=== PATIENT | female | born 1960 | race Caucasian/White ===

== ENCOUNTER → 2022-01-29 | Outpatient (CLI) | payer MEDICARE ==
[~2022-01-29] MED LIST: ASP81TEC; GADOTERATE 0.5 MMOL/ML (CLARISCAN) 20 ML VIAL IV ONE; LRT10T; MULT1TAB63
--- NOTE | 2022-01-29 15:14 | Diagnostic Imaging Report ---
PROCEDURE: MR imaging of the brain without contrast. TECHNIQUE: Multiplanar, multisequence MR imaging of the brain was performed without contrast. INDICATION: Abnormal brain MRI The outside abnormal brain MRI is not available for direct comparison. Ventricles and sulci are within normal limits for size. Delgado and white matter signal intensities are unremarkable. There is no abnormal mass effect or shift of midline structures. There is hyperostosis frontalis interna. No restricted diffusion is seen to indicate an infarct. The visualized paranasal sinuses and mastoid air cells are clear. IMPRESSION: Unremarkable MRI of the brain. Dictated by: Dictated on workstation # [id number]
== END ==
LOC: RAD 14:00
PROVIDERS: ATTEND Internal Medicine
DX: G93.9 Disorder of brain, unspecified (principal); R94.02 Abnormal brain scan
CPT/HCPCS: 70551

== ENCOUNTER 2022-05-07 22:55 | Emergency (ER) | payer MEDICARE ==
[~2022-05-07] VITALS: Ht 165.1 cm; Wt 104.3 kg
[~2022-05-07 22:55] MED LIST changes: -GADOTERATE 0.5 MMOL/ML (CLARISCAN) 20 ML VIAL IV ONE
[2022-05-07 23:36] VITALS: BP 144/73
[2022-05-07] MEDS ORDERED: RX-MUPIROCIN (BACTROBAN) 2% OINT 22 GM TUBE TOP STA (23:47)
[2022-05-07] MEDS ORDERED: RX-NAPROXEN (NAPROSYN) 250 MG TAB PPK#4 PO STA (23:53)
[2022-05-08] MEDS ORDERED: TETANUS,DIPTH,PERTUSS P/F (BOOSTRIX) 0.5 ML VIAL IM ONE
[2022-05-08] MEDS ORDERED: AUGMENTIN 875 MG TAB (AMOXICILLIN/CLAVULANATE) PO SCH
--- NOTE | 2022-05-08 00:01 | ED Integumentary General ---
General Chief Complaint: Skin/Wound Problems Stated Complaint: L LEG PUNCTURE WOUND, ROOSTER ATTACK Nursing Triage Note: pt ambulatory to room. pt reports at 10 this am she was attacked by her rooster. pt has puncture wound to inner and outer upper left thigh. pt reports putting neosporin on wound and taken alieve this afternoon. Source: patient History of Present Illness Date Seen by Provider: May 07, 2022 Time Seen by Provider: 23:42 Initial Comments PT ARRIVES VIA POV FROM HOME STATES AROUND 10 AM TODAY, SHE WAS OUTSIDE, OPENING A PEN WITH CHICKS IN IT, AND HER ROOSTER CAME UP BEHIND HER AND ATTACKED HER--SPURRED HER LEFT THIGH IN MULTIPLE PLACES WAS WEARING PANTS AT THE TIME PT HAS HAD INCREASED PAIN AND REDNESS TO THE AREAS, ESPECIALLY TO ONE AREA ON HER MEDIAL LEFT THIGH HAS SCANT AMOUNT OF SERO-SANGUINOUS DRAINAGE FROM THE MAIN MEDIAL THIGH WOUND TOOK ALEVE AT 1400 WITHOUT RELIEF. LAST TETANUS IS UNKNOWN PCP: DR. GUTIERREZ Allergies and Home Medications Allergies Coded Allergies: Sulfa (Sulfonamides) (Verified Allergy, Unknown, 03/30/07) Patient Home Medication List Aspirin (Aspirin Ec) 81 Mg Tablet, (Reported) Entered as Reported by: TO BELL on 03/30/07 0346 Loratadine (Claritin) 10 Mg Box, (Reported) Entered as Reported by: TO BELL on 03/30/07 034 Multivitamins (Vitamins (Multi-Vit)) 1 Ea Tablet, (Reported) Entered as Reported by: TO BELL on 03/30/07 0347 Physical Exam Vital Signs Vital Signs - First Documented 05/07/22 23:36 Temp 36.2 Pulse 67 Resp 20 B/P (MAP) 144/73 (96) Pulse Ox 99 Capillary Refill : Progress/Results/Core Measures Results/Orders My Orders Orders - PAUL DOMINGUEZ DO Rx-Mupirocin 2% Oint (Rx-Bactroban) (05/07/22 23:47) Dipht,Pertuss(Acell),Tet Adult (Boostrix (05/08/22 00:00) Wound Dressing-Ed (05/07/22 23:47) Amoxicillin/Clavulanate Tablet (Augmenti (05/08/22 00:00) Rx-Tramadol Hcl (Rx-Ultram) (05/07/22 23:53) Rx-Naproxen (Rx-Naprosyn) (05/07/22 23:53) Femur, Left, 2 Views (05/08/22 00:01) Vital Signs/I&O 05/07/22 23:36 Temp 36.2 Pulse 67 Resp 20 B/P (MAP) 144/73 (96) Pulse Ox 99 Blood Pressure Mean: 96 Departure Impression Primary Impression: PUNCTURE WOUNDS OF LEFT THIGH DUE TO ROOSTER SPURS Additional Impressions: Ekwvcawjgh-rppqnglfb-xwmgmvs (DPT) vaccination administered at current visit PUNCTURE WOUND WITH EARLY CELLULITIS Disposition: HOME, SELF-CARE Condition: Stable Departure-Patient Inst. Decision time for Depature: 00:58 Referrals: YOLI GUTIERREZ MD (PCP/Family) Primary Care Physician Patient Instructions: Cellulitis (Skin Infection), Adult (DC), Diphtheria and Tetanus Toxoids, and Acellular Pertussis Vaccine, Taking Care of Cuts, Scrapes, and Puncture Wounds, Wound Care (DC) Add. Discharge Instructions: ALTERNATE ICE AND HEAT TO SORE AREAS AT 20 MINUTE INTERVALS CLEAN 2-3 TIMES A DAY WITH ANTIBACTERIAL SOAP AND WATER, APPLY ANTIBIOTIC OINTMENT AND FRESH DRESSING TWICE A DAY FOLLOW UP WITH DR. GUTIERREZ ON TUESDAY FOR FURTHER CARE, RETURN TO ER IF WORSE All discharge instructions reviewed with patient and/or family. Voiced understanding. Scripts Tramadol HCl (Ultram) 50 Mg Tablet 50 MG PO Q4H for Pain, #20 TAB Prov: PAUL DOMINGUEZ DO 05/08/22 Naproxen (Naproxen) 500 Mg Tablet. 500 MG PO BID, #20 TAB Prov: PAUL DOMINGUEZ DO 05/08/22 Amoxicillin/Potassium Clav (Amox Tr-K Clv 875-125 mg Tab) 875 Mg-125 Mg Tablet 1 EACH PO BID for 15 Days, #30 TAB Prov: PAUL DOMINGUEZ DO 05/08/22 PAUL DOMINGUEZ DO May 08, 2022 00:01
[2022-05-08] MEDS ORDERED: TRAM-42 PO (01:02)
[2022-05-08] MEDS ORDERED: AMOX1TAB12 PO (01:02)
[2022-05-08] MEDS ORDERED: NAPR500T8 PO (01:02)
--- NOTE | 2022-05-08 07:29 | Diagnostic Imaging Report ---
EXAMINATION: Left femur 2 or more views HISTORY: Leg pain COMPARISON: None available. FINDINGS: No radiopaque foreign body is seen. Alignment is normal. No fracture is seen. Joint spaces are normal. IMPRESSION: 1. No fracture. No radiopaque foreign body. Dictated by: Dictated on workstation # [id number]
== END 2022-05-08 01:18 | disposition home or self-care (01) ==
LOC: EDUNIT# 22:55 → ER 22:57
DX: S71.132A Puncture wound without foreign body, left thigh, initial encounter (principal); Z23 Encounter for immunization; X58.XXXA Exposure to other specified factors, initial encounter
CPT/HCPCS: 73552; 90715

== ENCOUNTER 2022-06-12 22:52 | Emergency (ER) | payer MEDICARE ==
[~2022-06-12] VITALS: Ht 165.1 cm; Wt 104.3 kg
[~2022-06-12 22:52] MED LIST changes: +AMOX1TAB12 PO; +NAPR500T8 PO; +TRAM-42 PO
[2022-06-12] MEDS ORDERED: ONDANSETRON 4 MG/2 ML (SDV) Z0FRAN IVP ONE (23:15)
[2022-06-12 23:22] LABS: BASOPHILS # (AUTO) 0.1 10^3/uL (0.0-0.1); BASOPHILS % (AUTO) 1 % (0-10); EOSINOPHILS # (AUTO) 0.2 10^3/uL (0.0-0.3); EOSINOPHILS % (AUTO) 1 % (0-10); HEMATOCRIT 39 % (35-52); HEMOGLOBIN 13.6 g/dL (11.5-16.0); LYMPHOCYTES # (AUTO) 2.7 10^3/uL (1.0-4.0); LYMPHOCYTES % (AUTO) 20 % (12-44); MEAN CORPUSCULAR HEMOGLOBIN 30 pg (25-34); MEAN CORPUSCULAR HGB CONC 35 g/dL (32-36); MEAN CORPUSCULAR VOLUME 86 fL (80-99); MEAN PLATELET VOLUME 9.1 fL (9.0-12.2); MONOCYTES # (AUTO) 1.3 10^3/uL (0.0-1.0); MONOCYTES % (AUTO) 10 % (0-12); NEUTROPHILS # (AUTO) 8.7 10^3/uL (1.8-7.8); NEUTROPHILS % (AUTO) 66 % (42-75); PLATELET COUNT 319 10^3/uL (130-400); WHITE BLOOD COUNT 13.2 10^3/uL (4.3-11.0)
[2022-06-12 23:34] LABS: POTASSIUM 3.8 MMOL/L (3.6-5.0)
[2022-06-12 23:35] LABS: CALCIUM 9.2 MG/DL (8.5-10.1)
[2022-06-12 23:36] LABS: TOTAL PROTEIN 7.2 GM/DL (6.4-8.2)
[2022-06-12 23:38] LABS: BILIRUBIN,TOTAL 0.4 MG/DL (0.1-1.0)
[2022-06-12 23:40] LABS: CREATININE SERUM 0.95 MG/DL (0.60-1.30)
[2022-06-12 23:43] LABS: MAGNESIUM 1.9 MG/DL (1.6-2.4)
[2022-06-12 23:45] LABS: ERYTHROCYTE SEDIMENTATION RATE 18 MM/HR (0-30)
[2022-06-13] MEDS ORDERED: LACTATED RINGERS 1,000 ML IV ONE
--- NOTE | 2022-06-13 00:17 | ED GI ---
General Chief Complaint: Abdominal/GI Problems Stated Complaint: ABD PAIN,DIARRHEA,FEVER Source of Information: Patient History of Present Illness Date Seen by Provider: Jun 12, 2022 Time Seen by Provider: 23:12 Initial Comments PT ARRIVES VIA POV FROM HOME STATES SHE HAS BEEN SICK X 1 WEEK C/O NAUSEA C/O DIARRHEA C/O ABDOMINAL PAIN AND DISTENTION HAS HAD FEVER UP TO 100 Allergies and Home Medications Allergies Coded Allergies: Sulfa (Sulfonamide Antibiotics) (Verified Allergy, Unknown, 03/30/07) Patient Home Medication List Amoxicillin/Potassium Clav (Amox Tr-K Clv 875-125 mg Tab) 875 Mg-125 Mg Tablet, 1 EACH PO BID Prescribed by: PAUL DOMINGUEZ on 05/08/22101 Aspirin (Aspirin Ec) 81 Mg Tablet, (Reported) Entered as Reported by: TO BELL on 03/30/07345 Ciprofloxacin HCl (Ciprofloxacin HCl) 500 Mg Tablet, 500 MG PO BID Prescribed by: PAUL DOMINGUEZ on 06/13/22300 Dicyclomine HCl (Dicyclomine HCl) 20 Mg Tablet, 20 MG PO Q6H Prescribed by: PAUL DOMINGUEZ on 06/13/22300 L. Acidophilus/Pectin, Lobeco (Acidophilus Capsule) 7.5 Mg (30 Million Cell)-100 Mg Capsule, 2 EACH PO QID Prescribed by: PAUL DOMINGUEZ on 06/13/22300 Loratadine (Claritin) 10 Mg Box, (Reported) Entered as Reported by: TO BELL on 03/30/07346 Metronidazole (Metronidazole) 500 Mg Tablet, 500 MG PO QID Prescribed by: PAUL DOMINGUEZ on 06/13/22300 Multivitamins (Vitamins (Multi-Vit)) 1 Ea Tablet, (Reported) Entered as Reported by: TO BELL on 03/30/07346 Naproxen (Naproxen) 500 Mg Tablet.dr, 500 MG PO BID Prescribed by: PAUL DOMINGUEZ on 05/08/22101 Ondansetron (Ondansetron Odt) 8 Mg Tab.rapdis, 8 MG PO Q6H Prescribed by: PAUL DOMINGUEZ on 06/13/22300 Tramadol HCl (Ultram) 50 Mg Tablet, 50 MG PO Q4H Prescribed by: PAUL DOMINGUEZ on 8/13/22 0102 Past Yeoankd-Rzghuc-Apitfl Hx Past Medical History Surgeries: No Respiratory: Yes Asthma Cardiac: Yes (SVT) Irregular Heartbeat Neurological: No Reproductive Disorders: No Genitourinary: No Gastrointestinal: No Musculoskeletal: No Endocrine: Yes Hypothyroidsim HEENT: No Cancer: No Psychosocial: No Integumentary: No Blood Disorders: No Physical Exam Vital Signs Vital Signs - First Documented 06/12/22 23:01 Temp 36.0 Pulse 80 Resp 18 B/P (MAP) 135/76 (95) Pulse Ox 97 O2 Delivery Room Air Capillary Refill : Height/Weight/BMI Height: '" Weight: lbs. oz. 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, no motor/sensory deficits, alert, normal mood/affect, oriented x 3 Skin: normal color, warm/dry Focused Exam Lactate Level 06/13/22 00:00: Lactic Acid Level 1.18 Lactic Acid Level Laboratory Tests Test 06/13/22 00:00 Lactic Acid Level 1.18 MMOL/L (0.50-2.00) Progress/Results/Core Measures Results/Orders Lab Results Laboratory Tests Test 06/12/22 23:15 06/12/22 23:36 06/13/22 00:00 06/13/22 00:13 Range/Units White Blood Count 13.2 H 4.3-11.0 10^3/uL Red Blood Count 4.56 3.80-5.11 10^6/uL Hemoglobin 13.6 11.5-16.0 g/dL Hematocrit 39 35-52 % Mean Corpuscular Volume 86 80-99 fL Mean Corpuscular Hemoglobin 30 25-34 pg Mean Corpuscular Hemoglobin Concent 35 32-36 g/dL Red Cell Distribution Width 12.5 10.0-14.5 % Platelet Count 319 130-400 10^3/uL Mean Platelet Volume 9.1 9.0-12.2 fL Immature Granulocyte % (Auto) 2 % Neutrophils (%) (Auto) 66 42-75 % Lymphocytes (%) (Auto) 20 12-44 % Monocytes (%) (Auto) 10 0-12 % Eosinophils (%) (Auto) 1 0-10 % Basophils (%) (Auto) 1 0-10 % Neutrophils # (Auto) 8.7 H 1.8-7.8 10^3/uL Lymphocytes # (Auto) 2.7 1.0-4.0 10^3/uL Monocytes # (Auto) 1.3 H 0.0-1.0 10^3/uL Eosinophils # (Auto) 0.2 0.0-0.3 10^3/uL Basophils # (Auto) 0.1 0.0-0.1 10^3/uL Immature Granulocyte # (Auto) 0.3 H 0.0-0.1 10^3/uL Erythrocyte Sedimentation Rate 18 0-30 MM/HR Sodium Level 138 135-145 MMOL/L Potassium Level 3.8 3.6-5.0 MMOL/L Chloride Level 105 98-107 MMOL/L Carbon Dioxide Level 20 L 21-32 MMOL/L Anion Gap 13 5-14 MMOL/L Blood Urea Nitrogen 8 7-18 MG/DL Creatinine 0.95 0.60-1.30 MG/DL Estimat Glomerular Filtration Rate 68 BUN/Creatinine Ratio 8 Glucose Level 100 70-105 MG/DL Calcium Level 9.2 8.5-10.1 MG/DL Corrected Calcium 9.2 8.5-10.1 MG/DL Magnesium Level 1.9 1.6-2.4 MG/DL Total Bilirubin 0.4 0.1-1.0 MG/DL Aspartate Amino Transf (AST/SGOT) 21 5-34 U/L Alanine Aminotransferase (ALT/SGPT) 26 0-55 U/L Alkaline Phosphatase 77 40-136 U/L C-Reactive Protein High Sensitivity 1.21 H 0.00-0.50 MG/DL Total Protein 7.2 6.4-8.2 GM/DL Albumin 4.0 3.2-4.5 GM/DL Amylase Level 50 25-125 U/L Lipase 12 8-78 U/L Influenza Type A (RT-PCR) Not Detected Not Detecte Influenza Type B (RT-PCR) Not Detected Not Detecte SARS-CoV-2 RNA (RT-PCR) Not Detected Not Detecte Lactic Acid Level 1.18 0.50-2.00 MMOL/L Urine Color YELLOW Urine Clarity CLEAR Urine pH 6.0 5-9 Urine Specific [place] 1.015 L 1.016-1.022 Urine Protein NEGATIVE NEGATIVE Urine Glucose (UA) NEGATIVE NEGATIVE Urine Ketones NEGATIVE NEGATIVE Urine Nitrite NEGATIVE NEGATIVE Urine Bilirubin NEGATIVE NEGATIVE Urine Urobilinogen 0.2 < = 1.0 MG/DL Urine Leukocyte Esterase NEGATIVE NEGATIVE Urine RBC (Auto) NEGATIVE NEGATIVE Urine RBC NONE /HPF Urine WBC 0-2 /HPF Urine Squamous Epithelial Cells 2-5 /HPF Urine Crystals NONE /LPF Urine Bacteria TRACE /HPF Urine Casts NONE /LPF Urine Mucus SMALL H /LPF Urine Culture Indicated CULTURE PENDING Test 06/13/22 02:57 Range/Units Stool Occult Blood Immunoassay POSITIVE H NEGATIVE My Orders Orders - PAUL DOMINGUEZ DO Ed Iv/Invasive Line Start (06/12/22 23:13) Monitor-Rhythm Ecg Trace Only (06/12/22 23:13) Amylase (06/12/22 23:13) Cbc With Automated Diff (06/12/22 23:13) Comprehensive Metabolic Panel (06/12/22 23:13) Hs C Reactive Protein (06/12/22 23:13) Lactic Acid Analyzer (06/12/22 23:13) Lipase (06/12/22 23:13) Magnesium (06/12/22 23:13) Ua Culture If Indicated (06/12/22 23:13) Blood Culture (06/12/22 23:13) Erythrocyte Sedimentation Rate (06/12/22 23:13) Ondansetron Injection (Zofran Injectio (06/12/22 23:15) Covid 19 Inhouse Test (06/12/22 23:13) Influenza A And B By Pcr (06/12/22 23:13) Isolation Central Supply Req (06/12/22 23:13) Urine Culture (06/12/22 23:13) Ed Iv/Invasive Line Start (06/12/22 23:13) Vital Signs Adult Sepsis Patie Q15M (06/12/22 23:13) O2 (06/12/22 23:13) Remove Rings In Anticipation O (06/12/22 23:13) Ed Iv/Invasive Line Start (06/12/22 23:57) Lactated Ringers (Lr 1000 Ml Iv Solution (06/13/22 00:00) Chest 1 View, Ap/Pa Only (06/13/22 00:01) Straight Cath For Spec.-Adult (06/13/22 00:08) Ct Abdomen/Pelvis W (06/13/22 00:08) Iohexol Injection (Omnipaque 350 Mg/Ml 1 (06/13/22 02:15) Received Contrast (Hold Metformin- Contr (06/13/22 02:15) Ns (Ivpb) (Sodium Chloride 0.9% Ivpb Bag (06/13/22 02:15) Ciprofloxacin Tablet (Cipro Tablet) (06/13/22 03:00) Metronidazole Tablet (Flagyl Tablet) (06/13/22 03:00) Stool Culture (06/13/22 03:01) Fecal Wbc (06/13/22 03:01) Rotavirus Antigen (06/13/22 03:01) Parasite Scrn Stool Giard Cryp (06/13/22 03:01) Parasite Complete Exam Stool (06/13/22 03:01) C Difficile Ag + Toxin A/B. (06/13/22 03:01) Isolation Central Supply Req (06/13/22 03:01) Occult Blood Stool (06/13/22 03:01) Medications Given in ED Current Medications Medications Dose Ordered Sig/Meghan Route Start Time Stop Time Status Last Admin Dose Admin Iohexol 100 ml ONCE ONCE IV 06/13/22 02:15 06/13/22 02:17 DC 06/13/22 02:12 80 ML Lactated Ringer's 1,000 ml @ 0 mls/hr Q0M ONCE IV 06/13/22 00:00 06/13/22 00:01 DC 06/13/22 00:11 999 MLS/HR Metronidazole 500 mg ONCE ONCE PO 06/13/22 03:00 06/13/22 03:01 DC 06/13/22 02:58 500 MG Ondansetron HCl 4 mg ONCE ONCE IVP 06/12/22 23:15 06/12/22 23:16 DC 06/12/22 23:33 4 MG Sodium Chloride 100 ml ONCE ONCE IV 06/13/22 02:15 06/13/22 02:17 DC 06/13/22 02:13 80 ML Vital Signs/I&O 06/12/22 23:01 Temp 36.0 Pulse 80 Resp 18 B/P (MAP) 135/76 (95) Pulse Ox 97 O2 Delivery Room Air Departure Impression Primary Impression: Colitis Disposition: 01 HOME, SELF-CARE Condition: Stable Departure-Patient Inst. Decision time for Depature: 02:45 Referrals: YOLI GUTIERREZ MD (PCP/Family) Primary Care Physician Patient Instructions: Colitis (DC) Add. Discharge Instructions: CLEAR LIQUIDS--WATER, BROTH, JELLO, GATORADE BRATS DIET--BANANAS, RICE, APPLESAUCE, TOAST, SALTINES FOLLOW UP WITH YOUR DR IN 2-3 DAY FOR FURTHER CARE, RETURN TO ER IF WORSE All discharge instructions reviewed with patient and/or family. Voiced understanding. Scripts Ondansetron (Ondansetron Odt) 8 Mg Tab.rapdis 8 MG PO Q6H, #10 TAB Prov: PAUL DOMINGUEZ DO 06/13/22 Dicyclomine HCl (Dicyclomine HCl) 20 Mg Tablet 20 MG PO Q6H for Abdominal Pain, #30 TAB Prov: PAUL DOMINGUEZ DO 06/13/22 L. Acidophilus/Pectin, Lobeco (Acidophilus Capsule) 7.5 Mg (30 Million Cell)-100 Mg Capsule 2 EACH PO QID, #40 CAP Prov: PAUL DOMINGUEZ DO 06/13/22 Metronidazole (Metronidazole) 500 Mg Tablet 500 MG PO QID, #28 TAB 0 Refills Prov: PAUL DOMINGUEZ DO 06/13/22 Ciprofloxacin HCl (Ciprofloxacin HCl) 500 Mg Tablet 500 MG PO BID, #14 TAB Prov: PAUL DOMINGUEZ DO 06/13/22 PAUL DOMINGUEZ DO Jun 13, 2022 00:17
[2022-06-13 00:26] LABS: BILIRUBIN,URINE NEGATIVE (NEGATIVE); CLARITY,URINE CLEAR; COLOR,URINE YELLOW; GLUCOSE, URINE (UA) NEGATIVE (NEGATIVE); KETONES,URINE NEGATIVE (NEGATIVE); LEUKOCYTE ESTERASE ,URINE NEGATIVE (NEGATIVE); NITRITE,URINE NEGATIVE (NEGATIVE); PROTEIN,URINE NEGATIVE (NEGATIVE)
[2022-06-13 00:33] LABS: BACTERIA,URINE TRACE /HPF; WBC,URINE 0-2 /HPF
[2022-06-13] MEDS ORDERED: NS 100 ML (IVPB) BAG IV ONE (02:15)
[2022-06-13] MEDS ORDERED: HOLD METFORMIN - RECEIVED CONTRAST 20 ML VIAL IV SCH (02:15)
[2022-06-13] MEDS ORDERED: IOHEXOL 350 MG/ML 100 ML (OMNIPAQUE 350) VIAL IV ONE (02:15)
[2022-06-13] MEDS ORDERED: CIPROFLOXACIN 500 MG (CIPRO) TABLET PO SCH (03:00)
[2022-06-13] MEDS ORDERED: metroNIDAZOLE 500 MG (FLAGYL) TAB PO ONE (03:00)
[2022-06-13] MEDS ORDERED: L. A1CAP11 PO (03:01)
[2022-06-13] MEDS ORDERED: DICY20TA PO (03:01)
[2022-06-13] MEDS ORDERED: CIPR500T5 PO (03:01)
[2022-06-13] MEDS ORDERED: ONDA8TAB13 PO (03:01)
[2022-06-13] MEDS ORDERED: METR-145 PO (03:01)
[2022-06-13 03:56] VITALS: BP 135/76
--- NOTE | 2022-06-13 06:52 | Diagnostic Imaging Report ---
PROCEDURE: CT abdomen and pelvis with contrast. TECHNIQUE: Multiple contiguous axial images were obtained through the abdomen and pelvis after administration of intravenous contrast. Auto Exposure Controls were utilized during the CT exam to meet ALARA standards for radiation dose reduction. All CT scans use one or more of the following dose optimizing techniques: automated exposure control, MA and/or KvP adjustment based on patient size and exam type or iterative reconstruction. INDICATION: Abdominal pain, fever COMPARISON: None FINDINGS: Lung bases are clear. The heart is normal in size. The liver demonstrates a tiny hypodensity at the superior right lobe which is too small to characterize. There is focal fatty infiltration along the falciform ligament. Cholecystectomy clips are noted. The spleen appears normal. The pancreas is normal. The adrenal glands appear normal. The kidneys demonstrate no enhancing lesions. There is a simple appearing cyst in the posterior left kidney which measures 2.6 cm. The bowel loops are nondistended without obstruction. The appendix appears normal. There is diffuse bowel wall thickening and enhancement throughout the colon. No free fluid or free air seen. No lymphadenopathy is seen. The aorta is normal in caliber. No acute osseous abnormalities seen. IMPRESSION: 1. Acute colitis throughout the colon, likely infectious or inflammatory. No free fluid or free air. No significant changes from the preliminary report. Dictated by: Dictated on workstation # [id number]
--- NOTE | 2022-06-13 07:32 | Diagnostic Imaging Report ---
EXAMINATION: Chest radiograph, portable AP view. DATE: 06/13/2022 1:57 AM. INDICATION: 61-year-old female, chest pain. Fever. COMPARISON: None. FINDINGS: The heart size and mediastinal contours are unremarkable. There is no identified pneumothorax. There is no large pleural effusion. There is no identified focal airspace consolidation. IMPRESSION: No identified acute cardiopulmonary abnormality. Dictated by: Dictated on workstation # [id number]
== END 2022-06-13 03:56 | disposition home or self-care (01) ==
LOC: EDUNIT# 22:52 → ER 22:54
DX: K52.9 Noninfective gastroenteritis and colitis, unspecified (principal); Z20.822 Contact with and (suspected) exposure to COVID-19
CPT/HCPCS: 36415; 71045; 74177; 80053; 81000; 82150; 82274; 83605; 83690; 83735; 85025; 85652; 86141; 87015; 87040; 87045; 87046; 87088; 87177; 87324; 87328; 87425; 87449; 87636; 87899; 89055; 93041

== ENCOUNTER → 2022-06-30 | Outpatient (CLI) | payer MEDICARE ==
[~2022-06-30] MED LIST changes: +CATHETER FLUSH 10 ML SYR IV PRN; +CIPR500T5 PO; +DICY20TA PO; +HOLD METFORMIN - RECEIVED CONTRAST 20 ML VIAL IV SCH; +IOHEXOL 350 MG/ML 100 ML (OMNIPAQUE 350) VIAL IV ONE; +L. A1CAP11 PO; +METR-145 PO; +NS 100 ML (IVPB) BAG IV ONE; +ONDA8TAB13 PO
[2022-06-30 16:01] LABS: HEMATOCRIT 41 % (35-52); HEMOGLOBIN 13.3 g/dL (11.5-16.0); MEAN CORPUSCULAR HEMOGLOBIN 30 pg (25-34); MEAN CORPUSCULAR HGB CONC 33 g/dL (32-36); MEAN CORPUSCULAR VOLUME 91 fL (80-99); MEAN PLATELET VOLUME 9.3 fL (9.0-12.2); PLATELET COUNT 260 10^3/uL (130-400); WHITE BLOOD COUNT 7.7 10^3/uL (4.3-11.0)
[2022-06-30 16:17] LABS: ALBUMIN 4.3 GM/DL (3.2-4.5); POTASSIUM 4.2 MMOL/L (3.6-5.0)
[2022-06-30 16:19] LABS: CALCIUM 9.5 MG/DL (8.5-10.1)
[2022-06-30 16:20] LABS: TOTAL PROTEIN 7.7 GM/DL (6.4-8.2)
[2022-06-30 16:21] LABS: BILIRUBIN,TOTAL 0.4 MG/DL (0.1-1.0)
[2022-06-30 16:23] LABS: CREATININE SERUM 0.86 MG/DL (0.60-1.30)
--- NOTE | 2022-06-30 16:54 | Diagnostic Imaging Report ---
EXAMINATION: CT abdomen and pelvis with intravenous contrast. TECHNIQUE: Multiple contiguous axial images were obtained through the abdomen and pelvis after the uneventful administration of intravenous contrast. All CT scans use one or more of the following dose optimizing techniques: automated exposure control, MA and/or KvP adjustment based on patient size and exam type or iterative reconstruction. HISTORY: Abdominal pain. COMPARISON: 06/13/2022. FINDINGS: Limited views of the lower thorax are unremarkable. There is a tiny low attenuating liver lesion that is likely a cyst but is too small to characterize. No suspicious liver lesion. There is no biliary ductal dilation. Gallbladder is surgically absent. Pancreas is normal. Spleen is normal. Adrenal glands are normal. There is a simple cyst in the left kidney. No suspicious renal lesion. There is no hydronephrosis. Urinary bladder is normal. Previously seen inflammation of the sigmoid colon and rectum appears improved but there is mild wall thickening remaining. No abscess or perforation. Small bowel is normal in caliber. No free fluid or air. No abdominal or pelvic lymphadenopathy. Aorta is normal in caliber without aneurysm. There is no suspicious osseus lesion. IMPRESSION: Improvement in inflammation of the sigmoid colon and rectum with mild wall thickening remaining. No abscess or perforation. Dictated by: Dictated on workstation # [id number]
== END ==
LOC: RAD 16:30
PROVIDERS: ATTEND Nurse Practitioner Family
DX: K52.9 Noninfective gastroenteritis and colitis, unspecified (principal)
CPT/HCPCS: 36415; 74177; 80053; 85027

== ENCOUNTER 2022-07-16 10:05 | Outpatient (CLI) | payer MEDICARE ==
[~2022-07-16] VITALS: Ht 165 cm; Wt 96.8 kg
[~2022-07-16 10:05] MED LIST changes: -CATHETER FLUSH 10 ML SYR IV PRN; -HOLD METFORMIN - RECEIVED CONTRAST 20 ML VIAL IV SCH; -IOHEXOL 350 MG/ML 100 ML (OMNIPAQUE 350) VIAL IV ONE; -NS 100 ML (IVPB) BAG IV ONE
[2022-07-16] MEDS ORDERED: CHOL200074 PO (11:05)
[2022-07-16] MEDS ORDERED: METF-397 PO (11:05)
[2022-07-16] MEDS ORDERED: PANT40TA2 PO (11:05)
[2022-07-16] MEDS ORDERED: LEVO100C4 PO (11:05)
[2022-07-16] MEDS ORDERED: VITA1CAP PO (11:05)
[2022-07-16] MEDS ORDERED: METO50TA7 PO (11:10)
== END 2022-07-16 11:19 | disposition home or self-care (01) ==
LOC: PREOP 10:05
PROVIDERS: ATTEND Internal Medicine
DX: Z01.818 Encounter for other preprocedural examination (principal)

== ENCOUNTER 2022-07-23 09:07 | Day surgery (SDC) | payer MEDICARE ==
--- NOTE | 2022-07-18 02:27 | HISTORY AND PHYSICAL ---
DATE OF SERVICE: COLONOSCOPY HISTORY AND PHYSICAL DATE OF ADMISSION: 07/23/2022 HISTORY OF PRESENT ILLNESS: The patient is a 62-year-old white female referred by Dr. Hurt for diagnostic colonoscopy. She was doing well up until she had a puncture wound that led to a wound infection in the left thigh around the 05/17/2022. She was given a round of Augmentin followed by a round of Cleocin. Following this, she developed over a week history of diarrhea with generalized abdominal cramping. She went to the emergency room on 06/13/2022 where it was noted that she had diffuse colitis. She received a round of Cipro and Flagyl, felt little bit better but has been having intermittent bouts of diarrhea since. Her CT evaluation on the revealed diffuse colonic thickening. It was repeated on 06/30/2022 with radiology comparing the scans noting significant improvement, still little bit of thickening in the rectum and the sigmoid colon, but no other inflammatory type change and no other abnormalities being noted. There were no comments about any evidence for diverticular disease. Several years ago, she had a negative Cologuard, has had no other type of colon cancer screening. Her last episode of diarrhea with cramping was three days ago. Currently, it is resolved. Stool studies were positive for occult blood, negative for ova and parasites, negative for C. diff and enteric pathogens. She thinks that she has lost around 10 pounds of weight since April. She has no previous history of colonic infection. PAST MEDICAL HISTORY: Significant for obesity with nonalcoholic fatty liver disease, hypertension, hypothyroidism. She has supraventricular tachycardia. She underwent cardiac ablation for this in 2019. It worked for about a year but now she requires beta-janny therapy, which has been controlling as long as she takes it. She skips more than a dose or two, she will have recurrence per her report. PAST SURGICAL HISTORY: Other than her cardiac ablation significant for cholecystectomy in 2018 and total abdominal hysterectomy in 1985 for benign reasons. SOCIAL HISTORY: She is a retired nurse. No past smoking history. Rare small volume alcohol consumption. FAMILY HISTORY: She is not aware of any family history for colon cancer. There is history for heart failure in her mother, who had an [place] and hypertension and father who had a history of CVA, TX, type 2 diabetes and hypertension. REVIEW OF SYSTEMS: CONSTITUTIONAL: Does report some weight loss without night sweats, chills or fever. GASTROINTESTINAL: As per HPI. CARDIOVASCULAR: Other than occasional occurrences of heart racing, has had no chest pain, orthopnea, PND or pedal edema. PULMONARY: Denies cough, wheezing or shortness of breath. PHYSICAL EXAMINATION: GENERAL: Reveals a pleasant white female, did not appear to be in acute distress, little bit anxious. VITAL SIGNS: Blood pressure 130/100. HEENT: Unremarkable. Sclerae nonicteric. No evidence for pallor. CHEST: Clear to auscultation. CARDIOVASCULAR: Reveals regular rate and rhythm without murmur, S3 or S4. ABDOMEN: Soft, supple, obese. Right mid quadrant and epigastric discomfort to palpation without rebound or guarding is noted. No mass or organomegaly noted. ASSESSMENT AND PLAN: Chronic intermittent diarrhea with right mid quadrant and epigastric pain with occult positive blood in the stool. The patient is being set up for diagnostic colonoscopy. Prep instructions were given. The patient was instructed to take her beta-janny on the morning of the procedure with a sip of water. She will hold aspirin 81 mg daily dose that she takes, this Tuesday setting her up for 07/23/2022. Electronic medical record was reviewed. The patient's questions were answered, and prep instructions were given. Job ID: [id number] DocumentID: [id number] Dictated Date: 07/14/2022 17:17:56 Puppy Sitter Date: 07/14/2022 17:54:10 Dictated By: MEDARDO LOPEZ MD
[~2022-07-23] VITALS: Ht 165 cm; Wt 96.8 kg
[~2022-07-23 09:07] MED LIST changes: +CHOL200074 PO; +LEVO100C4 PO; +METF-397 PO; +METO50TA7 PO; +PANT40TA2 PO; +VITA1CAP PO
[2022-07-23] MEDS ORDERED: LACTATED RINGERS 1,000 ML IV STA (09:10)
--- NOTE | 2022-07-23 09:34 | Pre-Op Note & Conscious Sedat ---
Pre-Operative Progress Note Date H&P Reviewed: Jul 23, 2022 Time H&P Reviewed: 09:34 History & Physical: H&P Reviewed, Patient Examed, No changes noted Pre-Op Diagnosis: diarrhea and abdominal pain Conscious Sedation Pre-Proced ASA Score 2 For ASA 3 and 4: Consider anesthesia and medical clearance. Also, for patients with a history of failed moderate sedation consider anesthesia. Airway Lungs Heart ASA score ASA 1: a normal healthy patient ASA 2: a patient with a mild systemic disease (mid diabetes, controlled hypertension, obesity ASA 3: a patient with a severe systemic disease that limits activity (angina, COPD, prior Myocardial infarction) ASA 4: a patient with an incapacitating disease that is a constant threat to life (CHF, renal failure) ASA 5: a moribund patient not expected to survive 24 hrs. (ruptured aneurysm) ASA 6: a declared brain- patient whose organs are being harvested. For emergent operations, add the letter E after the classification Mallampati Classification Grade 2 Sedation Plan Analgesia, Amnesia, Plan communicated to team members, Discussed options with patient/fam, Discussed risks with patient/fam The patient is an appropriate candidate to undergo the planned procedure, sedation, and anesthesia. The patient immediately re-assessed prior to indication. MEDARDO LOPEZ MD Jul 23, 2022 09:34
[2022-07-23 09:55] VITALS: BP 163/70
[2022-07-23] MEDS ORDERED: PROPOFOL INJECTION 50 ML IV ONE (10:30)
[2022-07-23 10:55] VITALS: BP 157/79
--- NOTE | 2022-07-23 10:59 | Progress Note-Post Operative ---
Post-Procedure Note Physician (s)/White Spooler (s) Physician MEDARDO LOPEZ MD Pre-Procedure Diagnosis Pre-Procedure Diagnosis: diarrhea and abdominal pain Post-Procedure Diagnosis Post-operative diagnosis: The patient was placed in the left lateral decubitus position. Anal sphincter tone was normal and the perianal reflexes intact. Digital rectal evaluation revealed no abnormalities of the anal canal or distal rectal vault. The colonoscope was then inserted into the rectum and under direct visualization advanced to the cecum. The cecum was identified by identification of the ileocecal valve and the cecal strap. Photographic documentation was obtained. Quality of the prep was good. A careful inspection was made as the colonoscope was withdrawn. Findings: There were no evidence for internal or external hemorrhoids. There is some patchy erythema predominantly involving the distal rectum no ulceration was noted. A biopsy was obtained and submitted for histopathology. The proximal rectum was unremarkable. Several small to medium sized mid and proximal sigmoid diverticulum were noted without evidence for diverticulitis. The descending colon and splenic flexure transverse colon and hepatic flexure were unremarkable. A small lipoma was noted in the mid ascending colon that was otherwise unremarkable. At the cecum was unremarkable as well. Assessment: Patchy areas of erythema were noted in the distal rectum only a biopsy was obtained and submitted for histopathology further recommendations pending report. No evidence for neoplasia was identified today. Mild diverticular disease noted in the proximal and mid sigmoid colon was present without evidence for diverticulitis. 1 small lipoma was noted in the mid ascending colon with no other abnormalities being noted on today's procedure. Would advocate consideration for repeat screening colonoscopy in 10 years. I thank you for the referral of this pleasant lady sincerely Medardo Lopez MD. MEDARDO LOPEZ MD Jul 23, 2022 10:59
[2022-07-23 11:00] VITALS: BP 167/75
--- NOTE | 2022-07-23 11:12 | Anesthesia-General Post-Op ---
MAC Patient Condition Mental Status/LOC: Same as Preop Cardiovascular: Satisfactory Nausea/Vomiting: Absent Respiratory: Satisfactory Pain: Controlled Complications: Absent Post Op Complications Complications None Follow Up Care/Instructions Patient Instructions None needed. Anesthesiology Discharge Order Discharge Order Patient is doing well, no complaints, stable vital signs, no apparent adverse anesthesia problems. No complications reported per nursing. VENTURA BASSETT CRNA Jul 23, 2022 11:12
[2022-07-23 11:25] VITALS: BP 162/74
[2022-07-23 11:30] VITALS: BP 162/74
== END 2022-07-23 11:30 | disposition home or self-care (01) ==
LOC: ENDO 09:07
PROVIDERS: ATTEND Internal Medicine
DX: K57.30 Diverticulosis of large intestine without perforation or abscess without bleeding (principal); D17.5 Benign lipomatous neoplasm of intra-abdominal organs; K62.89 Other specified diseases of anus and rectum; E66.9 Obesity, unspecified; Z90.49 Acquired absence of other specified parts of digestive tract; Z79.82 Long term (current) use of aspirin; Z68.35 Body mass index [BMI] 35.0-35.9, adult

== ENCOUNTER → 2022-12-10 | Outpatient (CLI) | payer MEDICARE | LOC: CARD 10:34 | PROVIDERS: ATTEND Internal Medicine Cardiovascular Disease | DX: I08.0 Rheumatic disorders of both mitral and aortic valves (principal) | CPT/HCPCS: 93306 ==

== ENCOUNTER → 2023-01-04 | Outpatient (CLI) | payer MEDICARE ==
[~2023-01-04] VITALS: Ht 165 cm; Wt 104.0 kg
[~2023-01-04] MED LIST changes: +CATHETER FLUSH 10 ML SYR IVP PRN; +REGADENOSON 0.4 MG/5 ML SYR (LEXISCAN) IV ONE
[2023-01-04 09:33] VITALS: BP 169/96
--- NOTE | 2023-01-04 12:59 | STRESS TEST ---
DATE OF SERVICE: 01/04/2023 RESTING AND POST REGADENOSON TECHNETIUM-99M TETROFOSMIN SPECT CT IMAGING ORDERING PHYSICIAN: Grace Cerda APRN. PRIMARY PHYSICIAN: Dr. Hurt. CLINICAL DIAGNOSIS: Shortness of breath. Baseline images were carried out after injection of 10.93 mCi of technetium-99m tetrofosmin. This was followed by 0.4 mg regadenoson and 29.8 mCi of technetium-99m tetrofosmin for stress imaging. The electrocardiogram showed sinus rhythm with nonspecific ST and T-wave abnormality at baseline. It did not change significantly with regadenoson infusion. She tolerated the procedure well. Review of images at rest and following stress does not indicate any distinct perfusion defects consistent with significant myocardial ischemia or infarction. Some degree of breast and diaphragmatic attenuation is seen both at rest and following regadenoson infusion. Gated images show normal global left ventricular systolic function with normal regional wall motion. Left ventricular ejection fraction is calculated to be 60%. CONCLUSIONS: 1. No evidence of any significant myocardial ischemia or infarction on this study. 2. Normal regional wall motion. 3. Normal global left ventricular systolic function with a calculated ejection fraction of 60%. Job ID: [id number] DocumentID: [id number] Dictated Date: 01/04/2023 12:25:37 Set Up Operator Date: 01/04/2023 12:57:00 Dictated By: ZHANE SIFUENTES MD; LORIN; FACP; FACC;
== END ==
LOC: CARD 08:15
PROVIDERS: ATTEND Nurse Practitioner Family
DX: R06.09 Other forms of dyspnea (principal); R06.02 Shortness of breath
CPT/HCPCS: 78452; 93017; A9502

== ENCOUNTER → 2023-07-13 | Outpatient (CLI) | payer MEDICARE ==
[~2023-07-13] MED LIST changes: -CATHETER FLUSH 10 ML SYR IVP PRN; -REGADENOSON 0.4 MG/5 ML SYR (LEXISCAN) IV ONE
--- NOTE | 2023-07-13 16:43 | Diagnostic Imaging Report ---
EXAMINATION: Left knee 3 views HISTORY: Knee pain COMPARISON: None available. FINDINGS: There is mild tricompartmental osteoarthritis. No fracture or dislocation. There is a small effusion. IMPRESSION: 1. Small left effusion in the setting of mild tricompartmental osteoarthritis. Dictated by: Dictated on workstation # [id number]
== END ==
LOC: RAD 14:12
PROVIDERS: ATTEND Internal Medicine
DX: M17.12 Unilateral primary osteoarthritis, left knee (principal)
CPT/HCPCS: 73562

== ENCOUNTER → 2023-08-11 | Outpatient (CLI) | payer MEDICARE | LOC: CARD 08:36 | PROVIDERS: ATTEND Nurse Practitioner Family | DX: R00.2 Palpitations (principal) | CPT/HCPCS: 93225; 93226 ==